=== PATIENT | female | born 1955 | race Caucasian/White ===

== ENCOUNTER 2018-04-30 02:06 | Emergency (ER) | payer OTHER ==
[~2018-04-30] VITALS: Ht 154.9 cm; Wt 66.8 kg
[2018-04-30] MEDS ORDERED: ROSU10 PO (02:33)
[2018-04-30] MEDS ORDERED: VERA80 PO (02:33)
[2018-04-30] MEDS ORDERED: HYDR-4061 PO (02:33)
[2018-04-30] MEDS ORDERED: VENL50TA44 PO (02:33)
[2018-04-30 04:15] VITALS: BP 83/55
[2018-04-30] MEDS ORDERED: METHOCARBAMOL 750 MG TABLET PO ONE (04:15)
[2018-04-30] MEDS ORDERED: IBUPROFEN 600 MG TABLET PO ONE (04:15)
[2018-04-30] MEDS ORDERED: HYDROCODONE/ACETAMINOPHEN 5-325 MG TABLET PO ONE (04:15)
== END 2018-04-30 04:49 | disposition home or self-care (01) ==
LOC: EMS 02:08
DX: S13.4XXA Sprain of ligaments of cervical spine, initial encounter (principal); M62.838 Other muscle spasm; I10 Essential (primary) hypertension; E78.00 Pure hypercholesterolemia, unspecified; F17.210 Nicotine dependence, cigarettes, uncomplicated; Z88.1 Allergy status to other antibiotic agents; X58.XXXA Exposure to other specified factors, initial encounter; Y93.89 Activity, other specified; Y92.89 Other specified places as the place of occurrence of the external cause; Y99.8 Other external cause status
CPT/HCPCS: 99284; 99406